=== PATIENT | male | born 2000 | race Caucasian/White ===

== ENCOUNTER 2021-01-22 12:31 | Emergency (ER) | payer OTHER ==
[2021-01-22 14:49] LABS: HEMOGLOBIN 16.3 gm/dl (14.0-17.5); RED BLOOD COUNT 5.31 M/UL (4.20-5.50); WHITE BLOOD COUNT 8.9 K/UL (4.5-11.0)
[2021-01-22 15:26] LABS: BUN/CREATININE RATIO 15 (0-10)
== END 2021-01-22 16:35 | disposition home or self-care (01) ==
LOC: ER1 12:31
PROVIDERS: Emergency Medicine
DX: R07.89 Other chest pain (principal); Z86.73 Personal history of transient ischemic attack (TIA), and cerebral infarction without residual deficits; Z91.013 Allergy to seafood; Z91.030 Bee allergy status
CPT/HCPCS: 71045; 80053; 82550; 82553; 83874; 84439; 84443; 84484; 85025; 85379; 93005; 99285

== ENCOUNTER → 2021-02-28 | Outpatient (CLI) | payer OTHER | LOC: HEART 5 09:30 | DX: R07.9 Chest pain, unspecified (principal); R00.2 Palpitations ==

== ENCOUNTER → 2021-03-29 | Outpatient (CLI) | payer OTHER | LOC: HEART 5 10:05 | DX: R07.9 Chest pain, unspecified (principal) | CPT/HCPCS: 93306 ==